=== PATIENT | female | born 1960 | race African-American/Black ===

== ENCOUNTER 2016-07-21 10:40 | Inpatient (IN) | payer MEDICAID ==
[~2016-07-21] VITALS: Ht 154.9 cm; Wt 108.0 kg
[~2016-07-21 10:40] MED LIST: ATEN-60 PO; GABA300C8 PO; LEVO75TA50 PO; MORP30CA16 PO; WARF1TAB36 PO; WARF2TAB49 PO; WARF5TAB71 PO
[2016-07-21 11:32] LABS: Basophils # (auto) 0.1 uL; Basophils % (auto) 0.8 % (0.0-2.0); DEFINITIVE VIEW TRANSMISSION; Eosinophils # (auto) 0.4 uL; Eosinophils % (auto) 5.5 % (0.0-7.0); Hematocrit 42.4 % (36.0-46.0); Hemoglobin 13.5 g/dL (12.2-16.2); Lymphocytes # (auto) 2.1 uL; Lymphocytes % (auto) 29.8 % (10.0-50.0); Mean Corpuscular Hemoglobin 24.2 pg (28.0-32.0); Mean Corpuscular Hgb Conc. 31.7 g/dL (32.0-36.0); Mean Corpuscular Volume 76.3 fL (80.0-100.0); Monocytes # (auto) 0.4 uL; Monocytes % (auto) 6.4 % (0.0-12.0); Neutrophils % (auto) 57.5 % (37.0-80.0); Platelet Count (auto) 290 10^3/uL (140-450); Red Cell Distribution Width 16.7 % (11.6-16.0); White Blood Cell 6.9 10^3/uL (4.4-10.8)
[2016-07-21 11:40] LABS: Partial Thromboplastin Time 49.8 sec (22.64-33.71)
[2016-07-21 11:44] LABS: INR 3.12 (0.9-1.15); Prothrombin Time 32.1 sec (9.37-12.3)
[2016-07-21 11:45] LABS: Albumin 3.5 g/dL (3.4-5.0); BUN/Creatinine Ratio 9.4; Bilirubin, Total 0.4 mg/dL (0.2-1.0); Calcium 8.7 mg/dL (8.5-10.1); Total Protein 7.7 g/dL (6.4-8.2)
[2016-07-21] MEDS ORDERED: HYDROcodone-ACET 10/325MG TAB PO ONE (12:30)
[2016-07-21 13:21] LABS: Urine Bilirubin Negative (Negative); Urine Blood TRACE /uL (Negative); Urine Color Yellow (Yellow); Urine Glucose Normal (Normal); Urine Ketone Negative (Negative); Urine Nitrite Negative (Negative); Urine RBC 1 /hpf (0 - 4); Urine Squamous Epithelial Cell FEW /hpf (<5); Urine Urobilinogen Normal (Negative)
[2016-07-21] MEDS ORDERED: HEPARIN DRIP/D5W 100UNITS/ML 250 ML IV SCH (16:32)
[2016-07-21] MEDS ORDERED: TEMAZEPAM 15 MG CAP PO PRN (16:45)
[2016-07-21] MEDS ORDERED: ONDANSETRON HCL 4 MG/2 ML VIAL IV PRN (16:45)
[2016-07-21] MEDS ORDERED: HYDROcodone-ACET 5/325MG TAB PO PRN (16:45)
[2016-07-21] MEDS ORDERED: NITROGLYCERIN 0.4 MG SL TAB SL PRN (16:45)
[2016-07-21] MEDS ORDERED: MORPHINE SULF INJ 2 MG/ML SYRINGE 1ML IV PRN ×2 (16:45)
[2016-07-21] MEDS ORDERED: ACETAMINOPHEN 500 MG TAB PO PRN (16:45)
[2016-07-21] MEDS ORDERED: LORazepam 0.5 MG TAB PO PRN (16:45)
[2016-07-21] MEDS ORDERED: IOHEXOL 350 MG/ML 100ML IJ ONE (17:39)
[2016-07-21 20:20] VITALS: BP 129/83
[2016-07-21] MEDS ORDERED: POTA10TA51 PO (20:39)
[2016-07-21] MEDS ORDERED: ACET-6 PO (20:39)
[2016-07-21] MEDS ORDERED: AMLO5TAB2 PO (20:39)
[2016-07-21] MEDS ORDERED: LEVO75TA6 PO (20:43)
[2016-07-21] MEDS ORDERED: LOPE1TAB9 PO (20:43)
[2016-07-21] MEDS: ENOXAPARIN SOD 60 MG/0.6 ML SYRINGE SC SCH (21:36)
[2016-07-21 22:00] VITALS: BP 129/83
[2016-07-22 05:00] VITALS: BP 131/67
[2016-07-22 05:20] LABS: Cholesterol 227 mg/dL (<200); HDL Cholesterol 34 mg/dL (40-59); LDL Cholesterol 170 mg/dL (<100); Triglycerides 159 mg/dL (<150)
[2016-07-22 09:00] VITALS: BP 120/80
[2016-07-22] MEDS ORDERED: ENO120SY SC (10:54)
[2016-07-22 11:08] LABS: Partial Thromboplastin Time 45.6 sec (22.64-33.71)
[2016-07-22 11:09] LABS: INR 2.42 (0.9-1.15); Prothrombin Time 24.9 sec (9.37-12.3)
[2016-07-22] MEDS ORDERED: GASTROGRAFIN 30 ML SOL ONE ×2 (11:32→13:24)
[2016-07-22] MEDS: ENOXAPARIN SOD 60 MG/0.6 ML SYRINGE SC SCH (11:52)
[2016-07-22 13:00] VITALS: BP 126/90
[2016-07-22] MEDS ORDERED: SODIUM CHLORIDE 0.9% 1,000 ML IV ONE (14:45)
[2016-07-22 16:39] VITALS: BP 138/92
[2016-07-22 17:58] VITALS: BP 126/90
[2016-07-23] MEDS ORDERED: ENOXAPARIN SOD 80 MG/0.8ML SYRINGE SC SCH (10:00)
[2016-07-25] MEDS ORDERED: ENOXAPARIN SOD 100 MG/1 ML SYRINGE SC SCH (10:00)
== END 2016-07-22 20:16 | disposition home health service (06) | DRG 197 ==
LOC: ER 10:48 → TELE 10:49 → TELE-WESTW 21:14
PROVIDERS: ADMIT Internal Medicine; ATTEND Internal Medicine
DX: I82.412 Acute embolism and thrombosis of left femoral vein (principal); I10 Essential (primary) hypertension; E66.01 Morbid (severe) obesity due to excess calories; J45.909 Unspecified asthma, uncomplicated; K57.90 Diverticulosis of intestine, part unspecified, without perforation or abscess without bleeding; E03.9 Hypothyroidism, unspecified; M54.5 Low back pain; G62.9 Polyneuropathy, unspecified; G89.29 Other chronic pain; Z98.890 Other specified postprocedural states; Z90.710 Acquired absence of both cervix and uterus; Z98.51 Tubal ligation status; Z83.3 Family history of diabetes mellitus; Z82.49 Family history of ischemic heart disease and other diseases of the circulatory system; Z86.718 Personal history of other venous thrombosis and embolism; Z80.1 Family history of malignant neoplasm of trachea, bronchus and lung; Z68.42 Body mass index [BMI] 45.0-49.9, adult; Z88.6 Allergy status to analgesic agent; Z88.8 Allergy status to other drugs, medicaments and biological substances; Z79.01 Long term (current) use of anticoagulants; Z90.49 Acquired absence of other specified parts of digestive tract
CPT/HCPCS: 36415; 71010; 71275; 74176; 80053; 80061; 81001; 81241; 82550; 83735; 84484; 85025; 85379; 85610; 85613; 85652; 85670; 85705; 85730; 85732; 86141; 93005; 93971; 94761; G0434; J2405

== ENCOUNTER 2016-10-03 17:13 | Emergency (ER) | payer MEDICAID ==
[~2016-10-03] VITALS: Ht 157.5 cm; Wt 104.3 kg
[~2016-10-03 17:13] MED LIST changes: +ACET-6 PO; +AMLO5TAB2 PO; -ATEN-60 PO; +ENO120SY SC; -LEVO75TA50 PO; +LEVO75TA6 PO; +LOPE1TAB9 PO; -MORP30CA16 PO; +POTA10TA51 PO; -WARF1TAB36 PO; -WARF2TAB49 PO; -WARF5TAB71 PO
[2016-10-03 17:24] VITALS: BP 159/99
[2016-10-03 18:15] LABS: Basophils # (auto) 0 uL; Basophils % (auto) 0.4 % (0.0-2.0); DEFINITIVE VIEW TRANSMISSION; Eosinophils # (auto) 0.4 uL; Eosinophils % (auto) 3.5 % (0.0-7.0); Hematocrit 43.2 % (36.0-46.0); Hemoglobin 13.9 g/dL (12.2-16.2); Lymphocytes # (auto) 2.3 uL; Lymphocytes % (auto) 21.9 % (10.0-50.0); Mean Corpuscular Hemoglobin 24.6 pg (28.0-32.0); Mean Corpuscular Hgb Conc. 32.3 g/dL (32.0-36.0); Mean Corpuscular Volume 76.1 fL (80.0-100.0); Mean Platelet Volume 8.4 fL (7.4-10.4); Monocytes # (auto) 0.5 uL; Monocytes % (auto) 5.1 % (0.0-12.0); Neutrophils # (auto) 7.2 uL; Neutrophils % (auto) 69.1 % (37.0-80.0); Platelet Count (auto) 327 10^3/uL (140-450); Red Cell Distribution Width 17.5 % (11.6-16.0); White Blood Cell 10.5 10^3/uL (4.4-10.8)
[2016-10-03 18:27] LABS: INR 1.01 (0.9-1.15)
[2016-10-03 18:48] LABS: Albumin 3.7 g/dL (3.4-5.0); Calcium 8.9 mg/dL (8.5-10.1); Potassium 3.9 mmol/L (3.5-5.1)
[2016-10-03 18:51] LABS: BUN/Creatinine Ratio 11.7
[2016-10-03 18:54] LABS: Bilirubin, Total 0.3 mg/dL (0.2-1.0); Total Protein 8.3 g/dL (6.4-8.2)
== END 2016-10-03 19:58 | disposition left against medical advice (07) ==
LOC: ER 17:13 → EDUNIT# 17:13 → EDBD 17:13 → ER 19:58
DX: M79.671 Pain in right foot (principal); M79.605 Pain in left leg; Z53.21 Procedure and treatment not carried out due to patient leaving prior to being seen by health care provider
CPT/HCPCS: 36415; 80053; 85025; 85610

== ENCOUNTER 2017-04-28 05:13 | Emergency (ER) | payer MEDICAID, OTHER ==
[~2017-04-28] VITALS: Ht 157.5 cm; Wt 104.3 kg
[~2017-04-28 05:13] MED LIST changes: +GABA-497 PO; -GABA300C8 PO
[2017-04-28 06:38] LABS: Basophils # (auto) 0.1 uL; Eosinophils # (auto) 0.3 uL; Lymphocytes # (auto) 2.1 uL; Neutrophils # (auto) 5.1 uL
[2017-04-28 06:41] LABS: Hemoglobin 13.3 g/dL (12.2-16.2); Lymphocytes % (auto) 26.4 % (10.0-50.0); Mean Corpuscular Hgb Conc. 32.3 g/dL (32.0-36.0); Mean Corpuscular Volume 77.5 fL (80.0-100.0); Mean Platelet Volume 7.7 fL (6.9-10.8); Monocytes # (auto) 0.4 uL; Monocytes % (auto) 4.9 % (0.0-12.0); Neutrophils % (auto) 63.7 % (37.0-80.0); Platelet Count (auto) 254 10^3/uL (140-450); Red Cell Distribution Width 16.7 % (11.8-14.3)
[2017-04-28 06:56] LABS: Albumin 3.3 g/dL (3.4-5.0); BUN/Creatinine Ratio 15.8; Calcium 8.6 mg/dL (8.5-10.1); Potassium 3.6 mmol/L (3.5-5.1)
[2017-04-28 06:59] LABS: Bilirubin, Total 0.3 mg/dL (0.2-1.0); INR 1.02 (0.9-1.15); Partial Thromboplastin Time 33.3 sec (22.64-33.71); Prothrombin Time 11.1 sec (9.37-12.3); Total Protein 7.4 g/dL (6.4-8.2)
[2017-04-28 09:25] LABS: Urine RBC None Seen /hpf (0 - 4)
[2017-04-28 09:37] LABS: Urine Bilirubin Negative (Negative); Urine Blood Negative /uL (Negative); Urine Color Yellow (Yellow); Urine Glucose Normal (Normal); Urine Ketone Negative (Negative); Urine Nitrite Negative (Negative); Urine Squamous Epithelial Cell FEW /hpf (<5); Urine Urobilinogen Normal (Negative)
[2017-04-28 11:37] VITALS: BP 115/72
== END 2017-04-28 11:38 | disposition home or self-care (01) ==
LOC: ER 05:16
DX: I82.502 Chronic embolism and thrombosis of unspecified deep veins of left lower extremity (principal); M70.52 Other bursitis of knee, left knee; E66.9 Obesity, unspecified; E46 Unspecified protein-calorie malnutrition; R73.9 Hyperglycemia, unspecified; Z68.41 Body mass index [BMI] 40.0-44.9, adult; J45.909 Unspecified asthma, uncomplicated; I10 Essential (primary) hypertension; E07.89 Other specified disorders of thyroid; Z98.51 Tubal ligation status; Z90.710 Acquired absence of both cervix and uterus; Z88.8 Allergy status to other drugs, medicaments and biological substances
CPT/HCPCS: 36415; 73562; 80053; 81001; 85025; 85610; 85730; 93971

== ENCOUNTER 2017-05-14 16:25 | Emergency (ER) | payer MEDICAID, OTHER ==
[~2017-05-14] VITALS: Ht 157.5 cm; Wt 104.3 kg
[~2017-05-14 16:25] MED LIST changes: -GABA-497 PO; +GABA300C10 PO
[2017-05-14 16:49] VITALS: BP 119/73
== END 2017-05-15 00:45 | disposition left against medical advice (07) ==
LOC: ER 16:25
DX: M79.605 Pain in left leg (principal); Z53.21 Procedure and treatment not carried out due to patient leaving prior to being seen by health care provider
CPT/HCPCS: 73562; 93971

== ENCOUNTER 2018-02-12 17:45 | Inpatient (IN) | payer BC, MEDICAID ==
[~2018-02-12] VITALS: Ht 157.5 cm; Wt 104.1 kg
[~2018-02-12 17:45] MED LIST changes: +AMLO5TAB13 PO; -AMLO5TAB2 PO
[2018-02-12 18:42] LABS: Basophils # (auto) 0.1 uL; Eosinophils # (auto) 0.3 uL; Hemoglobin 14.1 g/dL (12.2-16.2); Mean Corpuscular Hgb Conc. 32.1 g/dL (32.0-36.0); Neutrophils # (auto) 6.4 uL; White Blood Cell 9.2 10^3/uL (4.4-10.8)
[2018-02-12 18:44] LABS: Eosinophils % (auto) 2.8 % (0.0-7.0); Hematocrit 43.9 % (36.0-46.0); Lymphocytes # (auto) 1.9 uL; Lymphocytes % (auto) 20.5 % (10.0-50.0); Mean Corpuscular Hemoglobin 25.1 pg (28.0-32.0); Mean Corpuscular Volume 78.1 fL (80.0-100.0); Monocytes # (auto) 0.5 uL; Monocytes % (auto) 5.5 % (0.0-12.0); Neutrophils % (auto) 70.2 % (37.0-80.0); Nucleated Red Blood Cells % 0.1 %; Platelet Count (auto) 243 10^3/uL (140-450); Red Blood Cells 5.62 10^6/uL (4.0-5.20); Red Cell Distribution Width 16.7 % (11.8-14.3)
[2018-02-12 19:00] LABS: Alanine Aminotransferase 25 U/L (13-56); Albumin 3.5 g/dL (3.4-5.0); Anion Gap 7 (5-15); Aspartate Aminotransferase 14 U/L (15-37); BUN/Creatinine Ratio 15.1; Blood Urea Nitrogen 14 mg/dL (7-18); Calcium 8.3 mg/dL (8.5-10.1); Carbon Dioxide 28 mmol/L (21-32); Chloride 105 mmol/L (98-107); GFR African American 79 mL/min; GFR Non-African American 66 mL/min; Glucose 98 mg/dL (74-106); Potassium 3.7 mmol/L (3.5-5.1); Sodium 140 mmol/L (136-145)
[2018-02-12] MEDS ORDERED: methylPREDNISolone SOD SUCC 125 MG/2 ML VL IV ONE (19:00)
[2018-02-12] MEDS ORDERED: IPRATROPIUM BROM 0.5 MG/2.5ML INH SOL HHN ONE (19:00)
[2018-02-12] MEDS ORDERED: ALBUTEROL SULF 2.5 MG/0.5ML(0.5%) NEB SOLN HHN ONE (19:00)
[2018-02-12 19:06] LABS: Alkaline Phosphatase 133 U/L (45-117); Bilirubin, Total 0.4 mg/dL (0.2-1.0)
[2018-02-12] MEDS ORDERED: ASPirin-EC 81 mg tab PO ONE (19:30)
[2018-02-12] MEDS ORDERED: ACETAMINOPHEN 325 MG TAB PO PRN (22:00)
[2018-02-12] MEDS ORDERED: ONDANSETRON HCL 4 MG/2 ML VIAL IV PRN (22:00)
[2018-02-12] MEDS ORDERED: MORPHINE SULFATE 4 MG/ML SYR/VIAL IV PRN (22:00)
[2018-02-12] MEDS ORDERED: TEMAZEPAM 15 MG CAP PO PRN (22:00)
[2018-02-12] MEDS ORDERED: HYDROcodone-ACET 5/325MG TAB PO PRN (22:00)
[2018-02-12] MEDS ORDERED: ALBUTEROL SULF 2.5 MG/0.5ML(0.5%) NEB SOLN NEB PRN (22:00)
[2018-02-12] MEDS ORDERED: NITROGLYCERIN 0.4 MG SL TAB SL PRN (22:00)
[2018-02-12 22:14] VITALS: BP 130/80
[2018-02-12] MEDS: APIXABAN 2.5 MG TAB PO SCH (23:08)
[2018-02-12] MEDS: GABAPENTIN 300 MG CAP PO SCH (23:08)
[2018-02-12] MEDS: FAMOTIDINE 20 MG TAB PO SCH (23:08)
[2018-02-13 01:47] VITALS: BP 110/69
[2018-02-13 05:51] VITALS: BP 127/70
[2018-02-13] MEDS ORDERED: LEVOTHYROXINE SODIUM 25 MCG TAB PO SCH (07:00)
[2018-02-13 07:01] LABS: Basophils # (auto) 0 uL; Eosinophils # (auto) 0 uL; Lymphocytes # (auto) 0.5 uL; Mean Corpuscular Hemoglobin 25.5 pg (28.0-32.0); Mean Corpuscular Hgb Conc. 32.9 g/dL (32.0-36.0); Monocytes # (auto) 0.1 uL; Monocytes % (auto) 0.8 % (0.0-12.0); Red Cell Distribution Width 16.3 % (11.8-14.3)
[2018-02-13 07:04] LABS: Basophils % (auto) 0.1 % (0.0-2.0); Eosinophils % (auto) 0.1 % (0.0-7.0); Hematocrit 42.4 % (36.0-46.0); Hemoglobin 13.9 g/dL (12.2-16.2); Lymphocytes % (auto) 6.1 % (10.0-50.0); Mean Corpuscular Volume 77.6 fL (80.0-100.0); Neutrophils # (auto) 7.7 uL; Neutrophils % (auto) 92.9 % (37.0-80.0); Platelet Count (auto) 246 10^3/uL (140-450); Red Blood Cells 5.46 10^6/uL (4.0-5.20); White Blood Cell 8.3 10^3/uL (4.4-10.8)
[2018-02-13 07:38] LABS: Albumin 3.1 g/dL (3.4-5.0); Calcium 8.5 mg/dL (8.5-10.1); Potassium 4.1 mmol/L (3.5-5.1)
[2018-02-13 07:40] LABS: Bilirubin, Total 0.3 mg/dL (0.2-1.0); Total Protein 7.6 g/dL (6.4-8.2)
[2018-02-13 09:00] VITALS: BP 129/73
[2018-02-13] MEDS: APIXABAN 2.5 MG TAB PO SCH (09:38)
[2018-02-13] MEDS: GABAPENTIN 300 MG CAP PO SCH (09:38)
[2018-02-13] MEDS: FAMOTIDINE 20 MG TAB PO SCH (09:39)
[2018-02-13] MEDS ORDERED: ENOXAPARIN SOD 40 MG/0.4 ML SYRINGE SC SCH (10:00)
[2018-02-13] MEDS ORDERED: amLODIPine BESYLATE 5 MG TAB PO SCH (10:00)
[2018-02-13 13:00] VITALS: BP 120/74
[2018-02-13 15:58] VITALS: BP 120/74
== END 2018-02-13 17:04 | disposition home or self-care (01) | DRG 313 ==
LOC: EDBD 17:45 → ER 17:45 → TELE 17:46 → TELE-CENTR 23:42
PROVIDERS: ADMIT Nurse Practitioner; ATTEND Internal Medicine
DX: R07.9 Chest pain, unspecified (principal); J45.41 Moderate persistent asthma with (acute) exacerbation; Z68.41 Body mass index [BMI] 40.0-44.9, adult; E66.01 Morbid (severe) obesity due to excess calories; I10 Essential (primary) hypertension; M54.6 Pain in thoracic spine; Z80.1 Family history of malignant neoplasm of trachea, bronchus and lung; Z82.49 Family history of ischemic heart disease and other diseases of the circulatory system; Z83.3 Family history of diabetes mellitus; Z86.718 Personal history of other venous thrombosis and embolism; Z90.710 Acquired absence of both cervix and uterus; Z90.49 Acquired absence of other specified parts of digestive tract; Z98.51 Tubal ligation status; Z88.8 Allergy status to other drugs, medicaments and biological substances
CPT/HCPCS: 36415; 71045; 72128; 80053; 83735; 83880; 84484; 85025; 85379; 93005; 93306; 93970; 94640; 94761; 96374

== ENCOUNTER 2018-12-12 12:10 | Inpatient (IN) | payer BC, MEDICAID ==
[~2018-12-12] VITALS: Ht 157.5 cm; Wt 104.3 kg
[~2018-12-12 12:10] MED LIST changes: -AMLO5TAB13 PO; +AMLO5TAB15 PO
[2018-12-12] MEDS ORDERED: ONDANSETRON ODT 4 MG TAB PO ONE (12:30)
[2018-12-12 13:19] LABS: Basophils # (auto) 0.1 uL; Eosinophils # (auto) 0.3 uL
[2018-12-12 13:21] LABS: Basophils % (auto) 1.1 % (0.0-2.0); Hematocrit 45.9 % (36.0-46.0); Hemoglobin 14.9 g/dL (12.2-16.2); Lymphocytes # (auto) 1.7 uL; Lymphocytes % (auto) 17.7 % (10.0-50.0); Mean Corpuscular Hemoglobin 25.6 pg (28.0-32.0); Mean Corpuscular Hgb Conc. 32.4 g/dL (32.0-36.0); Monocytes # (auto) 0.4 uL; Monocytes % (auto) 4.7 % (0.0-12.0); Neutrophils % (auto) 73.5 % (37.0-80.0); Platelet Count (auto) 283 10^3/uL (140-450); Red Blood Cells 5.81 10^6/uL (4.0-5.20); Red Cell Distribution Width 15.7 % (11.8-14.3); White Blood Cell 9.5 10^3/uL (4.4-10.8)
[2018-12-12 13:33] LABS: Alanine Aminotransferase 22 U/L (13-56); Albumin 3.7 g/dL (3.4-5.0); Amylase 71 U/L (25-115); Anion Gap 5 (5-15); Aspartate Aminotransferase 18 U/L (15-37); Blood Urea Nitrogen 13 mg/dL (7-18); Calcium 9.1 mg/dL (8.5-10.1); Carbon Dioxide 30 mmol/L (21-32); Chloride 105 mmol/L (98-107); Glucose 116 mg/dL (74-106); Lipase 62 U/L (73-393); Potassium 3.8 mmol/L (3.5-5.1); Sodium 140 mmol/L (136-145)
[2018-12-12 13:38] LABS: Alkaline Phosphatase 139 U/L (45-117); BUN/Creatinine Ratio 15.9; Bilirubin, Total 0.4 mg/dL (0.2-1.0); GFR African American 91 mL/min; GFR Non-African American 76 mL/min; Total Protein 8.3 g/dL (6.4-8.2)
[2018-12-12] MEDS ORDERED: SODIUM CHLORIDE 0.9% 1,000 ML IV ONE ×2 (14:20)
[2018-12-12 14:30] LABS: Urine WBC None Seen /hpf (0 - 5)
[2018-12-12] MEDS ORDERED: cefTRIAXone 1GM/50ML D5W 50 ML IV ONE (14:30)
[2018-12-12] MEDS ORDERED: metroNIDAZOLE 500MG/100ML 100 ML IV ONE (14:30)
[2018-12-12 14:47] LABS: Urine Bacteria NONE SEEN /hpf (None Seen); Urine Blood Negative /uL (Negative); Urine Specific Gravity 1.016 (1.001-1.035)
[2018-12-12] MEDS: SODIUM CHLORIDE 0.9% 1,000 ML IV SCH (18:49)
[2018-12-12] MEDS ORDERED: ONDANSETRON HCL 4 MG/2 ML VIAL IV PRN (19:00)
[2018-12-12] MEDS ORDERED: MORPHINE SULFATE 4 MG/ML SYR/VIAL IV PRN (19:00)
[2018-12-12] MEDS ORDERED: TEMAZEPAM 15 MG CAP PO PRN (19:00)
[2018-12-12] MEDS ORDERED: ACETAMINOPHEN 500 MG TAB PO PRN (19:00)
[2018-12-12] MEDS ORDERED: HYDROcodone-ACET 5/325MG TAB PO PRN (19:00)
[2018-12-12 20:35] VITALS: BP 116/80
[2018-12-12] MEDS: GABAPENTIN 300 MG CAP PO SCH (21:30)
[2018-12-12] MEDS: FAMOTIDINE 20 MG TAB PO SCH (21:30)
[2018-12-12] MEDS: APIXABAN 5 MG TAB PO SCH (21:30)
[2018-12-12 21:35] VITALS: BP 116/80
[2018-12-12] MEDS: CEFOTETAN 1GM/D5W 50ML BAG 50 ML IV SCH (21:49)
[2018-12-13] MEDS: SODIUM CHLORIDE 0.9% 1,000 ML IV SCH (02:49)
[2018-12-13 05:00] VITALS: BP 107/72
[2018-12-13 09:00] VITALS: BP 125/66
[2018-12-13] MEDS: CEFOTETAN 1GM/D5W 50ML BAG 50 ML IV SCH (09:58)
[2018-12-13] MEDS: APIXABAN 5 MG TAB PO SCH (09:59)
[2018-12-13] MEDS: GABAPENTIN 300 MG CAP PO SCH (09:59)
[2018-12-13] MEDS: FAMOTIDINE 20 MG TAB PO SCH (09:59)
[2018-12-13] MEDS ORDERED: LEVOTHYROXINE SODIUM 25 MCG TAB PO SCH (10:00)
[2018-12-13] MEDS ORDERED: amLODIPine BESYLATE 5 MG TAB PO SCH (10:00)
[2018-12-13 13:00] VITALS: BP 135/62
== END 2018-12-13 18:04 | disposition home or self-care (01) | DRG 249 ==
LOC: ER 12:10 → OVERFLOW 12:11 → WEST WING 20:09
PROVIDERS: ADMIT Internal Medicine; ATTEND Internal Medicine
DX: A08.4 Viral intestinal infection, unspecified (principal); E66.01 Morbid (severe) obesity due to excess calories; E03.9 Hypothyroidism, unspecified; K57.30 Diverticulosis of large intestine without perforation or abscess without bleeding; J45.909 Unspecified asthma, uncomplicated; I70.8 Atherosclerosis of other arteries; I10 Essential (primary) hypertension; Z82.49 Family history of ischemic heart disease and other diseases of the circulatory system; Z86.718 Personal history of other venous thrombosis and embolism; Z90.49 Acquired absence of other specified parts of digestive tract; Z90.710 Acquired absence of both cervix and uterus; Z83.3 Family history of diabetes mellitus; Z80.1 Family history of malignant neoplasm of trachea, bronchus and lung; Z84.89 Family history of other specified conditions; Z71.89 Other specified counseling; Z98.51 Tubal ligation status; Z88.8 Allergy status to other drugs, medicaments and biological substances; Z79.899 Other long term (current) drug therapy; Z68.41 Body mass index [BMI] 40.0-44.9, adult
CPT/HCPCS: 36415; 71045; 74176; 80053; 81001; 82150; 83605; 83690; 84484; 85025; 87040; 96365; 96368; G0378; J0696; J3490; Q0162